=== PATIENT | female | born 1945 | race Caucasian/White ===

== ENCOUNTER → 2018-03-18 18:56 | Outpatient (REF) | payer MEDICARE, BC, SELFPAY ==
[2018-03-18 19:46] LABS: Bilirubin Negative (Negative); Blood Negative (Negative); Clarity Clear; Glucose Negative (Negative); Ketones Negative (Negative); Leukocyte Esterase Trace (Negative); Nitrite Negative (Negative); Specific Gravity <= 1.005 (1.005-1.025); Urobilinogen 0.2 EU/dL (Up TO 0.2)
[2018-03-18 20:00] LABS: Bacteria Few HPF (Negative); Casts Negative LPF (Negative); Crystals Negative HPF (Negative); Epithelial Cells Rare HPF (Negative); Mucus Negative (Negative); Other Cells Few Renal (Negative); RBC Negative (0-2)
[2018-03-18 20:01] LABS: C & S Indicated? Yes
== END ==
LOC: LBN 18:56
PROVIDERS: PCP Family Medicine; Visit Provider Family Medicine
DX: M54.9 Dorsalgia, unspecified (principal); R82.99 Other abnormal findings in urine
CPT/HCPCS: 81003; 81015; 87086

== ENCOUNTER 2018-09-05 01:51 | Outpatient (CLI) | payer MEDICARE, BC, SELFPAY ==
[2018-09-05 11:32] LABS: Absolute Basophil Count 0.01 k/cumm (0.0-0.2); Absolute Eosinophil Count 0.14 k/cumm (0.0-0.7); Absolute Lymphocyte Count 1.47 k/cumm (1.2-3.4); Absolute Neutrophil Count 2.69 k/cumm (1.2-6.7); Basophils % 0.2; Eosinophils % 2.9; HCT 41.6 % (36.0-46.0); HGB 13.4 g/dL (12.0-15.5); Lymphocytes % 30.6; Mean Corp. HGB Concentration 32.2 g/dL (32.0-36.0); Mean Corpuscular Hemoglobin 27.7 pg (27.0-33.0); Mean Corpuscular Volume 86.1 fL (80-95); Mean Platelet Volume 10.8 fL (8.0-11.0); Monocytes % 10.4; Neutrophils % 55.9; Platelet Count 197 x1000/uL (130-400); RBC 4.83 m/cumm (4.00-5.20); White Blood Cell Count 4.81 k/cumm (4.4-10.8)
[2018-09-05 12:09] LABS: ALT 20 U/L (12-78); AST 14 U/L (15-37); Albumin 3.7 g/dL (3.4-5.0); Alkaline Phosphatase 81 U/L (46-116); Anion Gap 6.9 mmol/L (3-11); BUN 17 mg/dL (7-18); Bilirubin, Total 0.3 mg/dL (0.2-1.0); CO2 32.1 mmol/L (21.0-32.0); CREATININE 0.75 mg/dL (0.55-1.02); Calcium 9.3 mg/dL (8.5-10.1); Chloride 104 mmol/L (98-107); Cholesterol 211 mg/dL (50-200); Glucose 89 mg/dL (70-100); HDL Cholesterol 78 mg/dL (40-60); LDL CHOLESTEROL 107 mg/dL (<100); Sodium 143 mmol/L (136-145); TSH 1.93 uIU/mL (0.358-3.74); Total Protein 7.1 g/dL (6.4-8.2); Triglyceride 85 mg/dL (30-150)
== END 2018-09-05 02:11 ==
PROVIDERS: PCP Family Medicine; Visit Provider Family Medicine
DX: E78.00 Pure hypercholesterolemia, unspecified (principal); R53.83 Other fatigue
CPT/HCPCS: 36415; 80053; 80061; 83721; 84443; 85025

== ENCOUNTER 2018-10-25 00:55 | Outpatient (CLI) | payer MEDICARE, BC, SELFPAY ==
--- NOTE | 2018-10-25 09:41 | DI.US_ITS ---
SYMPTOMS/DIAGNOSIS: PELVIC PAIN, R10.2 PELVIC ULTRASOUND: Transabdominal and transvaginal examination was performed. The uterus measures 5.6 cm long x 2.5 cm AP x 4.0 cm transverse. There does appear to be a 1.0 cm hypodense lesion in the anterior fundal region suggestive of a fibroid. The endometrial stripe measures .4 cm. There is a small amount of fluid seen within the endometrial canal. Both ovaries were visualized and are unremarkable. No evidence of hydronephrosis or free pelvic fluid is identified. IMPRESSION: 1 cm uterine fibroid.
== END 2018-10-25 01:15 ==
PROVIDERS: PCP Family Medicine; Visit Provider Family Medicine
DX: R10.2 Pelvic and perineal pain (principal); D25.9 Leiomyoma of uterus, unspecified
CPT/HCPCS: 76830; 76856

== ENCOUNTER 2019-05-29 15:00 | Outpatient (CLI) | payer MEDICARE, BC, SELFPAY ==
--- NOTE | 2019-05-29 14:56 | DI.RAD_ITS ---
EXAM: XR KNEE LT 3V AP,LAT,LOCO CLINICAL HISTORY: L knee pain TECHNIQUE: COMPARISON: Knee L from 10/29/2017 FINDINGS: Three views were obtained. There is a prominent enthesophyte of the superior pole of patella. No ot her bony or soft tissue abnormality seen. IMPRESSION:
== END 2019-05-29 15:20 ==
PROVIDERS: PCP Family Medicine; Referring Provider Family Medicine; Visit Provider Student in an Organized Health Care Education/Training Program
DX: M25.562 Pain in left knee (principal); M17.12 Unilateral primary osteoarthritis, left knee
CPT/HCPCS: 20610; 73562; 99213; J1040

== ENCOUNTER → 2019-10-06 14:04 | Outpatient (BNVA) | payer MEDICARE, BC, SELFPAY | PROVIDERS: PCP Family Medicine; Referring Provider Family Medicine; Visit Provider Student in an Organized Health Care Education/Training Program | DX: M17.12 Unilateral primary osteoarthritis, left knee (principal); M25.562 Pain in left knee | CPT/HCPCS: 20610; 99213; J1040 ==

== ENCOUNTER → 2020-02-02 14:47 | Outpatient (BNVA) | payer MEDICARE, BC, SELFPAY | PROVIDERS: PCP Family Medicine; Referring Provider Family Medicine; Visit Provider Student in an Organized Health Care Education/Training Program | DX: M17.12 Unilateral primary osteoarthritis, left knee (principal) | CPT/HCPCS: 99212; 99213 ==

== ENCOUNTER 2020-02-06 00:46 | Outpatient (CLI) | payer MEDICARE, BC, SELFPAY ==
--- NOTE | 2020-02-06 07:13 | DI.MRI_ITS ---
EXAM: MR LOWER JOINT LT WO CLINICAL HISTORY: persistent L knee pain. M23.92, INTERNAL DERANGEMENT. TECHNIQUE: Multiplanar multisequence MRI was performed. COMPARISON: CR XR KNEE LT 3V AP,LAT,LOCO from 05/29/2019 FINDINGS: BONES: Mild hyperintense signal is seen in the medial tibial plateau with thinning of the overlying a rticular cartilage which is likely degenerative. No findings to suggest an occult fracture. JOINTS: Thinning of the overlying cartilage of the medial tibial plateau. Moderate joint effusion. Moderate popliteal cyst. TENDONS: Extensor mechanism: Unremarkable. Medial retinaculum: Unremarkable. Lateral retinaculum: Unremarkable. Popliteus: Unremarkable. MUSCLES: Unremarkable. MENISCI: There is a complex tear involving the body and posterior horn of the medial meniscus. The l ateral meniscus is unremarkable. SOFT TISSUES: There is edema seen in the soft tissues around the knee. LIGAMENTS: Anterior Cruciate: Unremarkable. Posterior Cruciate: Unremarkable. Medial Collateral:There is fluid seen around an intact medial collateral ligament which may represent a sprain. Lateral Collateral: Unremarkable. OTHER: IMPRESSION: 1. Complex tear of the body and posterior horn of the medial meniscus. 2. Sprain of the medial collateral ligament. 3. Degenerative changes seen in the medial femoral tibial joint. 4. Moderate joint effusion and popliteal cyst. DATA REPOSITORY:
== END 2020-02-06 01:06 ==
PROVIDERS: PCP Family Medicine; Visit Provider Student in an Organized Health Care Education/Training Program
DX: M25.562 Pain in left knee (principal); M25.462 Effusion, left knee; S83.242A Other tear of medial meniscus, current injury, left knee, initial encounter; R60.0 Localized edema; S83.412A Sprain of medial collateral ligament of left knee, initial encounter; M17.12 Unilateral primary osteoarthritis, left knee
CPT/HCPCS: 73721

== ENCOUNTER 2020-02-19 10:00 | Outpatient (CLI) | payer MEDICARE, BC, SELFPAY | END 2020-02-19 10:20 | PROVIDERS: PCP Family Medicine; Visit Provider Physician Assistant | DX: M17.12 Unilateral primary osteoarthritis, left knee (principal) | CPT/HCPCS: 20610; 99213; J1040 ==

== ENCOUNTER → 2020-11-08 12:54 | Outpatient (BNVA) | payer MEDICARE, BC, SELFPAY | PROVIDERS: PCP Family Medicine; Referring Provider Family Medicine; Visit Provider Physician Assistant Surgical | DX: Z01.818 Encounter for other preprocedural examination (principal); S83.242D Other tear of medial meniscus, current injury, left knee, subsequent encounter; X58.XXXD Exposure to other specified factors, subsequent encounter ==

== ENCOUNTER 2020-11-15 03:16 | Outpatient (CLI) | payer MEDICARE, BC, SELFPAY ==
[2020-11-15 10:48] LABS: Source Nasal/Nares
[2020-11-15 16:19] LABS: COVID-19 PCR Negative (Negative)
== END 2020-11-15 03:17 | disposition home or self-care (01) ==
LOC: LBO 03:16
PROVIDERS: PCP Family Medicine; Visit Provider Student in an Organized Health Care Education/Training Program
DX: Z20.822 Contact with and (suspected) exposure to COVID-19 (principal); Z01.818 Encounter for other preprocedural examination
CPT/HCPCS: 87635

== ENCOUNTER 2020-11-16 08:45 | Day surgery (SDC) | payer MEDICARE, BC, SELFPAY ==
[2020-11-16] VITALS (8 sets, daily range): BP systolic 81–125; BP diastolic 30–64; PULSE 62–76; RESP 14–17; TEMP 36.1–36.6; O2SAT 97–100
--- NOTE | 2020-11-16 08:06 | W.PM.DSUDISC ---
Discharge Plan Disposition Patient Disposition: HOME Condition: Stable Discharge Details Reason For Visit: Left knee arthroscopy Attending Provider: William Choudhury Primary Care Provider: Kristen Christensen Home Meds and New Rx's Prescriptions: New hydrocodone-acetaminophen 5-325 mg tablet 1 tab PO Q6H PRNQty: 10 RF: 0 acetaminophen [Tylenol Extra Strength] 500 mg tablet 500 mg PO Q6H PRNQty: 90 RF: 0 ibuprofen 600 mg tablet 600 mg PO TID Qty: 90 RF: 0 Continued docusate sodium [Colace] 100 mg capsule 100 mg PO DAILY PRNRF: 0 psyllium husk [Fiber (psyllium husk)] 0.52 gram capsule 0.52 gm PO DAILY RF: 0 calcium citrate-vitamin D3 200 mg calcium -250 unit tablet 1 tab PO BID RF: 0 clobetasol-emollient 0.05 % cream 15 gm Topical 1 delfina to vulva PRN (Reason: Lichen sclerosus) Qty: 1 RF: 2 lovastatin 10 mg tablet 10 mg PO DAILY Qty: 90 RF: 4 diphenhydramine-acetaminophen [Acetaminophen PM] 25-500 mg Tablet 1 tab PO HS PRNRF: 0 Discharge Instructions Stand Alone Forms: Kei Knee Arthroscopy Referrals: William Choudhury MD [ [facility] STAFF PHYSICIAN] - Equipment/Supplies: Partial Weight Bearing Crutches Activity:: Activity as Tolerated Remove Dressings/Wound Care:: 72 hours Shower/Bathe:: 72 hours Diet:: As Tolerated Discharge Orders Discharge Orders: Discharge Order (Routine); Ordered 11/16/20 Ordered By: Kamla Sherman DS: Diagnosis Discharge Diagnosis (1) Tear of medial meniscus of left knee: Status: Acute
[2020-11-16] MEDS: Lactated Ringers 1,000 ML 80 ML IV (09:42)
[2020-11-16] MEDS: ceFAZolin 2 GM/50 ML BAG IVPB (10:28)
[2020-11-16] MEDS: Bupivacaine 0.5% Pres-Free 30 ML VIAL (10:58)
[2020-11-16] MEDS: HYDROcodone 5/Acetaminophen 325 TAB PO ×2 (12:33→13:18)
--- NOTE | 2020-11-16 18:09 | ROE_ITS ---
Date of service: 11/16/20 Time of Service: 11:10 Operative Note Operative Note DATE OF PROCEDURE: 11/16/20 PRE-OP DIAGNOSIS: Left Knee Medial Meniscus Tear POST-OP DIAGNOSIS: same PROCEDURE: Left Knee Arthroscopic Partial Medial Menisectomy SURGEON: William Choudhury ANESTHESIA TYPE: General LMA/ETT Refer to Anesthesia Record ESTIMATED BLOOD LOSS: 0 PATHOLOGY: none sent TOURNIQUET TIME: 0 COMPLICATIONS: None Patient was transported to: PACU Patient's condition: stable Indications: I have seen Edna in clinic for symptoms of a meniscus tear. This was confirmed based on MRI and exam findings. Nonoperative measures were exhausted but disability and pain persisted. I discussed knee arthroscopy with meniscal intervention with the patient. I reviewed the risks of the procedure to include, but not limited to, bleeding, infection, pain, stiffness, damage to nerves or vessels, recurrence, blood clot. Despite these risks, the patient elected to proceed. Findings: A diagnostic arthroscopy was performed with the following findings: Suprapatellar Pouch: Moderate inflammatory changes within the knee, No loose bodies Medial Compartment: Complex medial meniscal tear with a radial component at the level of the root with few peripheral fibers remaining, No focal chondromalacia but some global Grade II chondromalacia, No loose bodies Notch: ACL and PCL were intact Lateral Compartment: No meniscal tear, Intact meniscal root, Grade II chondromalacia over the femur, No loose bodies Patellofemoral Compartment: Grade II chondromalacia, No apparent patellar maltracking Procedure Description: Edna was greeted in the preoperative holding area where the correct side was identified and marked. The consent was reviewed with the patient and signed. The history and physical was updated. All questions were answered. Edna was taken back to the operating room. The patient was placed into the supine position on the operating room table. A nonsterile tourniquet was placed high onto the leg but not used. All bony prominences were well padded. Prophylactic antibiotics in the form of Cefazolin were administered. The left leg was then prepped with Chloraprep and draped in a standard fashion with stockinette and extremity drape. A timeout to confirm correct identity, side and site, procedure, allergies, anesthesia, and medical concerns was performed. The leg was placed into a pneumatic leg hernandez, SPIDER2. A standard lateral portal was made at the lateral border of the patella tendon in line with the inferior pole of the patella, soft spot. The skin and deep tissue was incised sharply and the blunt trochar was inserted atraumatically. A diagnostic arthroscopy was performed and the findings are listed above. The suprapatellar pouch had moderate inflammatory changes and synovitis. The patellofemoral articulation showed some Grade II chondromalacia of the patella apex as well as good tracking. The lateral gutter had no loose bodies and the medial gutter had no loose bodies. The knee was brought into some valgus stress in extension to open the medial compartment. A medial portal was made, localized by a spinal needle. The portal was created with an #11 blade through skin and capsule under direct visualization avoiding any meniscal injury. A probe was then inserted into the medial compartment. The medial compartment was fully inspected. The chondral surface of the tibia showed Grade II chondromalacia and the surface of the femur showed similar findings. The medial meniscus had a complex medial meniscus tear that a primary radial component just medial to the posterior root attachment. There was complex tearing into the body of the meniscus with fraying and horizontal tearing. After evaluation, the meniscus was debrided down to a stable base using a series of biters and arthroscopic tanya. It was probed afterwards to confirm that the tear had been removed and the meniscus was stable. The notch was then inspected which showed an intact ACL and an intact PCL. The leg was then brought into a figure of 4 position. The lateral compartment was fully inspected with the arthroscope and a probe. The chondral surface of the lateral femur showed no significant chondromalacia. The chondral surface of the lateral tibia showed Grade II chondromalacia. The lateral meniscus had no meniscal tear. The arthroscope was brought back into the suprapatellar pouch and the leg was in full extension. The knee was thoroughly irrigated with the arthroscopic fluid on high flow and pressure. Inflow was stopped and excess fluid was removed. The wounds were closed with 4-0 Nylon. They were dressed with Xeroform, 4x4 gauze, ABD pad, Kerlix and an FLOR wrap. A cryo-cuff was applied. The patient tolerated the procedure well and was returned to the [facility] in a stable condition suffering no known complication.
== END 2020-11-16 14:45 | disposition home or self-care (01) ==
LOC: SUR 08:46
PROVIDERS: PCP Family Medicine; Visit Provider Student in an Organized Health Care Education/Training Program
PROC: (CPT 29870; principal; 2020-11-16 10:30)
DX: S83.242A Other tear of medial meniscus, current injury, left knee, initial encounter (principal); E78.00 Pure hypercholesterolemia, unspecified
CPT/HCPCS: 29881; J0690; J1100; J1885; J2001; J2405

== ENCOUNTER → 2020-11-29 08:52 | Outpatient (BNVA) | payer MEDICARE, BC, SELFPAY | PROVIDERS: PCP Family Medicine; Referring Provider Family Medicine; Visit Provider Student in an Organized Health Care Education/Training Program | DX: Z47.89 Encounter for other orthopedic aftercare (principal); M25.562 Pain in left knee ==

== ENCOUNTER 2020-12-09 03:16 | Outpatient (CLI) | payer MEDICARE, BC, SELFPAY ==
[2020-12-09 09:16] LABS: ALT 22 U/L (14-59); AST 23 U/L (15-37); Albumin 3.9 g/dL (3.4-5.0); Alkaline Phosphatase 82 U/L (46-116); Anion Gap 5.3 mmol/L (3-11); BUN 19 mg/dL (7-18); Bilirubin, Total 0.4 mg/dL (0.2-1.0); CO2 32.7 mmol/L (21.0-32.0); CREATININE 0.9 mg/dL (0.55-1.02); Calcium 9.7 mg/dL (8.5-10.1); Chloride 104 mmol/L (98-107); Glucose 95 mg/dL (74-106); Potassium 4.1 mmol/L (3.5-5.1); Sodium 142 mmol/L (136-145); TSH 1.62 uIU/mL (0.36-3.74); Total Protein 7.1 g/dL (6.4-8.2)
[2020-12-09 09:36] LABS: Calculated LDL 168 mg/dL (<100); Cholesterol 262 mg/dL (<200); HDL Cholesterol 71 mg/dL (40-60); Triglyceride 115 mg/dL (<150)
== END 2020-12-09 03:17 | disposition home or self-care (01) ==
LOC: LBO 03:16
PROVIDERS: PCP Family Medicine; Visit Provider Family Medicine
DX: E78.00 Pure hypercholesterolemia, unspecified (principal); R23.2 Flushing
CPT/HCPCS: 36415; 80053; 80061; 84443

== ENCOUNTER → 2020-12-27 10:53 | Outpatient (BNVA) | payer MEDICARE, BC, SELFPAY | PROVIDERS: PCP Family Medicine; Referring Provider Family Medicine; Visit Provider Physician Assistant | DX: Z47.89 Encounter for other orthopedic aftercare (principal); M25.562 Pain in left knee ==

== ENCOUNTER 2021-03-04 03:01 | Outpatient (CLI) | payer MEDICARE, BC, SELFPAY ==
[2021-03-04 08:43] LABS: Calculated LDL 135 mg/dL (<100); Cholesterol 228 mg/dL (<200); HDL Cholesterol 73 mg/dL (40-60); Triglyceride 100 mg/dL (<150)
== END 2021-03-04 03:02 | disposition home or self-care (01) ==
LOC: LBO 03:02
PROVIDERS: PCP Family Medicine; Visit Provider Family Medicine
DX: E78.00 Pure hypercholesterolemia, unspecified (principal)
CPT/HCPCS: 36415; 80061

== ENCOUNTER 2021-03-07 16:09 | Outpatient (CLI) | payer MEDICARE, BC, SELFPAY ==
--- NOTE | 2021-03-07 13:30 | DI.RAD_ITS ---
Exam(s) XR CHEST 2V PA LATERAL EXAM: XR CHEST 2V PA LATERAL CLINICAL HISTORY: chronic cough/dc smoking 1993,R05. TECHNIQUE: 2D digital imaging was performed. COMPARISON: CR CHEST 2 VIEWS PA,LAT from 05/05/2012 FINDINGS: Heart size is normal. The mediastinum is not widened. Calcified granuloma in the right upper lobe sub apical region noted. No confluent infiltrates nor pl eural effusions. No pulmonary edema. No pneumothorax. IMPRESSION: No acute pulmonary findings. DATA REPOSITORY: RADIATION DOSE DELIVERED:
== END 2021-03-07 16:29 ==
PROVIDERS: PCP Family Medicine; Visit Provider Family Medicine
DX: R05 Cough (principal); F17.200 Nicotine dependence, unspecified, uncomplicated
CPT/HCPCS: 71046

== ENCOUNTER → 2021-12-29 02:10 | Outpatient (CLI) | payer MEDICARE, BC, SELFPAY ==
--- NOTE | 2021-12-29 07:00 | DI.RAD_ITS ---
Exam(s) XR CERVICAL SPINE COMP 4-5V EXAM: XR CERVICAL SPINE COMP 4-5V CLINICAL HISTORY: right neck pain, neck pain over 3 months duration, M54.2. TECHNIQUE: 2D digital imaging was performed. Six images were obtained. AP, odontoid, lateral and dario ateral oblique images were obtained. COMPARISON: No exams were available for comparison FINDINGS: The odontoid is intact. The lateral masses are well aligned. There is normal alignment of the cervi gonzalez spine. Small osteophytes are seen at C6-C7 and C7-T1. There is mild disc space narrowing at C6-C 7. Facet arthropathy is seen at multiple levels of the cervical spine. No acute fracture or subluxa tion is present. Mild neural foraminal narrowing is seen on the right at C2-C3 and C3-C4. Mild narro wing of the neural foramen is seen on the left at C4-5 and C5-C6. The cervical thoracic junction is w ell maintained. The prevertebral soft tissues are unremarkable. Lung apices are clear. IMPRESSION: Moderate degenerative changes of the cervical spine as described. DATA REPOSITORY: RADIATION DOSE DELIVERED:
== END ==
PROVIDERS: PCP Family Medicine; Visit Provider Family Medicine
DX: M50.323 Other cervical disc degeneration at C6-C7 level (principal); M47.812 Spondylosis without myelopathy or radiculopathy, cervical region; M25.78 Osteophyte, vertebrae
CPT/HCPCS: 72050

== ENCOUNTER 2021-12-30 10:59 | Outpatient (REF) | payer MEDICARE, BC, SELFPAY ==
--- NOTE | 2021-12-30 08:00 | PAPFT_PTH ---
PATIENT: Edna Obrien LOC: [facility] U#:[id number] AGE/SX: 76/F ROOM: RE12/30/[address]: EDUARDO Dominguez : 1945 BED: DIS: 12/30/2021 SPEC #: [id number] RECD: 12/30/21 12:22 STATUS: BELLO REQ #: [id number] RADHA: 12/30/21 08:[address]: Barbara Dickens DEPT: [facility] Cytology RECD BY: Kristi Rosado ENTERED: 12/30/21 12:23 SP TYPE: PAPFT OTHR DR: Krysta Morris Tissues: 1 - CX/ENDOCX FOR PAP SMEARS Procedures: PAP THIN PREP/UVM Screening HPV DNA PROBE Comments: [id number]
== END 2021-12-30 11:00 | disposition home or self-care (01) ==
LOC: LBN 10:59
PROVIDERS: PCP Family Medicine; Visit Provider Nurse Practitioner Family
DX: N95.0 Postmenopausal bleeding (principal); Z11.51 Encounter for screening for human papillomavirus (HPV); Z12.4 Encounter for screening for malignant neoplasm of cervix
CPT/HCPCS: 88142; 87624

== ENCOUNTER → 2022-01-13 00:47 | Outpatient (CLI) | payer MEDICARE, BC, SELFPAY ==
--- NOTE | 2022-01-13 07:30 | DI.US_ITS ---
Exam(s) US PELVIS TRANSVAGINAL EXAM: US PELVIS TRANSVAGINAL CLINICAL HISTORY: post menopausal bleeding,N95.0. TECHNIQUE: Transabdominal and transvaginal pelvic ultrasound was performed using standard protocol. COMPARISON: No exams were available for comparison FINDINGS: KIDNEYS: Kidneys are symmetric in size. No evidence of renal calculi. No evidence of hydronephrosis. No renal mass or cyst identified. UTERUS: Position: Retroverted. Size: 4.4 long by 2.4 AP by 3.3 transverse cm Endometrium: 0.4 cm. Normal for patient's menstrual status. There is a small amount of fluid seen wit hin the endometrial canal. Myometrium: Unremarkable. Cervix: Question of a cervical nabothian cyst. OVARIES: Right: 2.5 x 1.8 x 1.1 cm Cyst or mass: No suspicious cystic or solid masses. Left: 1.4 x 2.2 x 0.7 cm Cyst or mass: No suspicious cystic or solid masses. CUL-DE-SAC: Free fluid: None. Other: None. IMPRESSION: 1. Normal sonographic appearance of the kidneys. 2. Normal-appearing uterus with endometrial stripe within normal limits. 3. Small amount of fluid seen within the endometrial canal. 4. Unremarkable bilateral ovaries. DATA REPOSITORY:
== END ==
PROVIDERS: PCP Family Medicine; Visit Provider Nurse Practitioner Family
DX: N95.0 Postmenopausal bleeding (principal)
CPT/HCPCS: 76830; 76856

== ENCOUNTER 2022-01-26 10:12 | Outpatient (REF) | payer MEDICARE, BC, SELFPAY ==
--- NOTE | 2022-01-26 09:40 | ENDOMET_PTH ---
PATIENT: Edna Obrien LOC: [facility] U#:[id number] AGE/SX: 76/F ROOM: RE01/26/[address]: Veda Craig DO : 1945 BED: DIS: 01/26/2022 SPEC #: [id number] RECD: 01/26/22 12:36 STATUS: SOUT REQ #: [id number] RADHA: 01/26/22 09:[address]: Veda Craig DEPT: Surgical Specimen RECD BY: Kristi Rosado ENTERED: 01/26/22 12:37 SP TYPE: Endomet OTHR DR: Krysta Morris Tissues: 1 - ENDOMETRIUM BX/LUKEETTE Procedures: GROSS AND MICRO LEVEL 4 Comments: [id number]
== END 2022-01-26 10:13 | disposition home or self-care (01) ==
LOC: LBN 10:12
PROVIDERS: PCP Family Medicine; Visit Provider Obstetrics & Gynecology
DX: N85.8 Other specified noninflammatory disorders of uterus (principal); N95.0 Postmenopausal bleeding
CPT/HCPCS: 88305

== ENCOUNTER 2022-03-23 03:51 | Outpatient (CLI) | payer MEDICARE, BC, SELFPAY ==
[2022-03-23 12:54] LABS: Calculated LDL 92 mg/dL (<100); Cholesterol 182 mg/dL (<200); HDL Cholesterol 70 mg/dL (40-60); Triglyceride 103 mg/dL (<150)
== END 2022-03-23 03:52 | disposition home or self-care (01) ==
LOC: LOS 03:51
PROVIDERS: PCP Family Medicine; Visit Provider Family Medicine
DX: E78.00 Pure hypercholesterolemia, unspecified (principal)
CPT/HCPCS: 36415; 80061

== ENCOUNTER → 2022-04-06 02:56 | Outpatient (CLI) | payer MEDICARE, BC, SELFPAY ==
--- NOTE | 2022-04-06 07:07 | DI.CT_ITS ---
Exam(s) CT CERVICAL SPINE WO EXAM: CT CERVICAL SPINE WO CLINICAL HISTORY: abnormal MRI, cervical radiculopathy, M47.22, DJD spine. TECHNIQUE: Imaging Protocol: Axial computed tomography images with coronal and sagittal reformatted images were created and reviewed COMPARISON: CR XR SHOULDER LT COMPLETE 2+V from 04/06/2022 FINDINGS: CERVICAL SPINE: There is no evidence of fracture nor listhesis. No significant prevertebral soft tissue swelling. Mild multilevel disc space narrowing. There is moderate disc space narrowing at C2-3 level. Milder disc space narrowing at the other levels. Mild degenerative anterolisthesis of C 4 upon C5 due to fa cet arthropathy. There are advanced multilevel degenerative changes noted in the right facet to mint ; less so in the left facet joints. There is no facet malalignment. No prominent central spinal canal stenosis. IMPRESSION: Multilevel right-sided facet arthropathy and multilevel degenerative disc disease. No evidence of ac ann fracture, significant listhesis, nor acute compromise of the cervical spinal canal. If clinicall y indicated further imaging with MRI can be performed for added sensitivity and specificity. RADIATION DOSE DELIVERED: 399mGy.cm Total DLP DATA REPOSITORY: All CT scans at this facility are submitted to the National Radiology Data Registry (NRDR) Dose Index Registry (DIR) with the [employer] ([employer]). RADIATION OPTIMIZATION: All CT scans at this facility use at least one of these dose optimization te chniques: automated exposure control; mA and/or kV adjustment per patient size (includes targeted exa ms where dose is matched to clinical indication); or iterative reconstruction.
--- NOTE | 2022-04-06 08:26 | DI.RAD_ITS ---
Exam(s) XR SHOULDER LT COMPLETE 2+V EXAM: XR SHOULDER LT COMPLETE 2+V CLINICAL HISTORY: left arm pain,? AC arthritis,cervical radiculopathy,pain upper ext, M47.22. TECHNIQUE: 2D digital imaging was performed. COMPARISON: No exams were available for comparison FINDINGS: Five views: No evidence of fracture or dislocation. Mild-moderate degenerative changes are noted in the glenohum eral joint. There is slight widening of the AC joint noted. There is a prominent chunk of calcium in the soft tissues anterior to the humeral head seen on the ax ial image just anterior to the lesser tuberosity. This calcific density measures 1.8 x 0.7 cm. Ther e is a possibly that this may be comprised of 2 similar appearing adjacent calcifications. It is in the region of the anterior rotator cuff-subscapularis. Either represents calcific anterior subscapul todd rotator cuff tendinitis or may represents free calcified body within the glenohumeral joint spac e. IMPRESSION: Significant anterior calcification as described above. Recommend follow-up MRI. DATA REPOSITORY: RADIATION DOSE DELIVERED:
== END ==
PROVIDERS: PCP Family Medicine; Visit Provider Family Medicine
DX: M47.22 Other spondylosis with radiculopathy, cervical region (principal); M75.82 Other shoulder lesions, left shoulder
CPT/HCPCS: 72125; 73030

== ENCOUNTER 2022-07-19 15:23 | Outpatient (REF) | payer MEDICARE, BC, SELFPAY ==
[2022-07-19 16:36] LABS: C Diff PCR Negative (Negative)
== END 2022-07-19 15:24 | disposition home or self-care (01) ==
LOC: LBN 15:23
PROVIDERS: PCP Family Medicine; Visit Provider Family Medicine
DX: K52.1 Toxic gastroenteritis and colitis (principal); T36.95XA Adverse effect of unspecified systemic antibiotic, initial encounter
CPT/HCPCS: 87493

== ENCOUNTER 2022-09-22 00:55 | Outpatient (CLI) | payer MEDICARE, BC, SELFPAY ==
[2022-09-22 12:13] LABS: Abs Immature Grans 0.01 10^3/uL (0.0-0.06); Absolute Basophil Count 0.03 10^3/uL (0.0-0.2); Absolute Eosinophil Count 0.15 10^3/uL (0.0-0.7); Absolute Monocyte Count 0.55 10^3/uL (0.1-0.8); Absolute Neutrophil Count 3.45 10^3/uL (1.2-6.7); Basophils % 0.5; Eosinophils % 2.7; HGB 14.1 g/dL (11.2-15.7); Immature Grans % 0.2; MCH 27.2 pg (27.0-33.0); MCHC 31.3 % (32.0-36.0); MCV 87 fL (80-95); MPV 10.6 fL (8.0-11.0); Monocytes % 9.8; Neutrophils % 61.8; Platelet Count 211 10^3/uL (130-400); RBC 5.19 10^6/uL (3.93-5.22); RDW 12.4 % (11.7-14.6); RDW-SD 39.6 fL; WBC 5.59 10^3/uL (4.4-10.8)
[2022-09-22 12:49] LABS: ALT 17 U/L (14-59); AST 25 U/L (15-37); Albumin 3.6 g/dL (3.4-5.0); Alkaline Phosphatase 89 U/L (46-116); BUN 17 mg/dL (7-18); Bilirubin, Total 0.3 mg/dL (0.2-1.0); CREATININE 0.9 mg/dL (0.55-1.02); Calcium 9.5 mg/dL (8.5-10.1); Chloride 102 mmol/L (98-107); Estimated GFR 66.26 (mL/min/1.73m2); Glucose 94 mg/dL (74-106); Potassium 3.7 mmol/L (3.5-5.1); Sodium 139 mmol/L (136-145); Total Protein 7.2 g/dL (6.4-8.2)
== END 2022-09-22 00:56 | disposition home or self-care (01) ==
LOC: LOS 00:55
PROVIDERS: PCP Family Medicine; Visit Provider Family Medicine
DX: R19.4 Change in bowel habit (principal)
CPT/HCPCS: 36415; 80053; 85025

== ENCOUNTER 2022-12-06 23:18 | Outpatient (REF) | payer MEDICARE, BC, SELFPAY | END 2022-12-06 23:19 | disposition home or self-care (01) | LOC: LBN 23:18 | PROVIDERS: PCP Family Medicine; Visit Provider Nurse Practitioner Family | DX: R10.9 Unspecified abdominal pain (principal); R82.998 Other abnormal findings in urine; R11.2 Nausea with vomiting, unspecified | CPT/HCPCS: 87086 ==

== ENCOUNTER 2023-07-29 09:49 | Emergency (ER) | payer MEDICARE, BC, SELFPAY ==
[2023-07-29] VITALS (37 sets, daily range): BP systolic 127–144; BP diastolic 45–82; PULSE 52–92; RESP 9–36; O2SAT 96–100
--- NOTE | 2023-07-29 09:45 | RT.EKG_ITS ---
APPROVED REPORT Exam: Resting ECG Reason for Exam: DIZZINESS, NAUSEA Patient Location: E HR:76 bpm ECG Measurements Heart Rate 76 AXIS AL 174 P 64 QRSd 90 QRS 46 QT 388 T 28 QTc 436 Conclusion Sinus rhythm...normal P axis, V-rate 60- 99 NSR, isolated t wave inversion in III, no STEMI, normal axis, normal intervals, no previous avail
--- NOTE | 2023-07-29 09:59 | ED.GENADUL_ITS ---
Discharge Plan Disposition Patient Disposition: Home Condition: Improving Discharge Details Clinical Impression: Benign paroxysmal positional vertigo Primary Care Provider: Krysta Morris ED Provider: Sue Hernandez Home Meds and New Rx's Prescriptions: New meclizine 12.5 mg tablet 12.5 mg PO Q6H PRN PRNQty: 1 0RF Rx Instructions: Take 1 to 2 tablets every 6 hours as needed for dizziness. Do not take Tylenol PM while taking this medication. It can cause drowsiness. ondansetron 4 mg tablet,disintegrating 4 mg PO Q4H PRN (Reason: nausea and vomiting) Qty: 12 0RF Rx Instructions: Take 1 tablet every 3-4 hours as needed for nausea. No Action lovastatin 20 mg tablet 20 mg PO DAILY Qty: 90 4RF Hold Instructions: Home Medication placed on hold at Doctor's office ondansetron HCl 4 mg tablet 4 mg PO Q8H PRN (Reason: nausea and vomiting) Qty: 10 0RF Hold Instructions: Pt Stopped/Never Started calcium citrate-vitamin D3 200 mg calcium -250 unit tablet 1 tab PO BID clobetasol 0.05 % ointment 1 applic topical DAILY PRN (Reason: apply to vulva as needed) Qty: 15 4RF gabapentin 100 mg capsule See Rx Instructions PO BID Qty: 270 3RF Rx Instructions: 100mg in morning and 200mg at bedtime orally twice a day; diphenhydramine-acetaminophen [Acetaminophen PM] 25-500 mg Tablet 1 tab PO HS PRN acetaminophen [Tylenol Extra Strength] 500 mg tablet 500 mg PO Q6H PRNQty: 90 0RF Discharge Instructions Instructions: Benign Paroxysmal Positional Vertigo (ED) Additional Instructions: 1. Take meclizine 12.5 mg 1 to 2 tablets every 6 hours as needed for dizziness. Do not take Tylenol PM or any other antihistamines while on meclizine. This can cause drowsiness. You should not drink alcohol drive or operate heavy m ach[place] while taking this medication. 2. Take 4 mg of ondansetron every 3 hours as needed for nausea and vomiting. 3. You should contact your primary care provider on July 31 to arrange for follow-up appointment. You will be contacted by Dr. Mendoza's office. She is a neurologist for the vertigo. 4. Return to the emergency department for any new or worsening symptoms such as unilateral muscle weakness inability to ambulate or keep down pills or oral fluids, or for any new or worrisome symptoms. Discharge Data Discharge Date/Time-TO BE ENTERED AT DEPARTURE: 07/29/23 14:53 Discharge Physician: Sue Hernandez Medical Decision Making This is a 78 yo female who presents with the acute onset of dizziness after dusting her home. Although she is having difficulty distinguishing between presyncopal and vertiginous dizziness, her exam in constistent with either peripheral or central vertigo, given her nystagmus, nausea and vomiting. She does not have any other neurologic focal abnormalities, or headache. She denies any tinnitus or change in hearing and I doubt this is the initial presentation of Menieire's disease. I am not sure why she is having diarrhea, and it is possible, although unlikely she has an abominal process such as a gastroenteritis, causing dehydration and presyncopal dizziness. My main concern, given her age in a cerebellar hemorrhagic or non-hemorrhagic CVA, which may only have vertiginous symptoms on presentation. My plan is to order a noncontrast CT of her brain, to obtain IV access, and order blood work including a cbc to check for anemia, leukocytosis, and a CMP, to check for electolyte abnormalities, elevated anion gap, renal function, liver function tests. I will order zofran for her nausea. When her nausea has been addressed, I will give her po meclizine if her head CT is normal. Her abdominal exam is benign and I do not think she has a GI bleed and I do not believe there is an indication for CT scanning of the abdomen. Differential Diagnosis Differential Diagnosis: Vertigo vs. presyncope, cerebellar cva, gastroenteritis. Medical Records Medical records reviewed: Yes I reviewed the patient's medical records. Imaging Data Radiologic Study: Imaging: CT Scan (CTA Brain and Neck) Radiologist's impression: vRad impression no evidence of acute intracranial abnormality. No acute hemorrhage. No evidence of acute infarct or mass. Radiologic Study #2: Imaging: CT Scan (CTA Neck) Radiologist's impression: IMPRESSION: No cervical vascular stenosis, occlusion, or evidence of dissection. Lab Data Lab results reviewed: Yes I reviewed the patient's lab results. Lab results narrative: normal WBC, mild anemia, normal plt count, normal diff, normal coags, hypokalemia, no elevation of anion gap, normal renal function, mild hyperglycemia, normal UA, ECG Data Attestation: I personally reviewed and interpreted this ECG (s) as follows: Prior ECG tracings: available for review HPI General Date/Time Provider Initiated Documentation: 07/29/23 09:59 . Limitations to Documentation: no limitations . Information obtained by: patient and family () . HPI Narrative: Time seen was 10:15 am in bed 6. The patient is a 78 yo F who presents with the acute onset of dizziness which began abuptly this morning at about 8 am. The patient describes dizziness which she preceives as both the sensation of move ment as well as the feeling she is going to pass out. She denies chest pain, change in hearing, headache, or recent URI. She denies any previous similar symptoms. The symptoms began after she was dusting her house. She states that she felt fine when she woke up. She denies any blurry vision, numbness, tingling, unilateral arm or leg weakness, confusion or recent head trauma, no fever, no abdominal pain, no previous similar episodes. She has had 5 episodes of non-bloody diarrhea. She has had nausea and has vomited twice. No blood or coffee grounds noted in vomitus. No abdominal pain, dysuria, back pain. No sick contacts with similar symptoms. No recent foreign travel, no unusual foods, no recent antibiotics. Related Data Home Medications Medication Instructions Recorded Confirmed calcium citrate 200 mg 1 tab PO BID 07/22/18 07/29/23 calcium-vitamin D3 6.25 mcg (250 unit) tablet diphenhydramine 25 1 tab PO HS PRN 11/15/20 07/29/23 mg-acetaminophen 500 mg tablet (Acetaminophen PM) acetaminophen 500 mg tablet 500 mg PO Q6H PRN #90 tabs 11/16/20 07/29/23 (Tylenol Extra Strength) clobetasol 0.05 % topical ointment 1 applic topical DAILY PRN apply 03/10/21 07/29/23 to vulva as needed #15 grams lovastatin 20 mg tablet 20 mg PO DAILY #90 tab-caps 12/29/22 07/29/23 gabapentin 100 mg capsule See Rx Instructions PO BID #270 08/02/23 12/24/23 caps ondansetron HCl 4 mg tablet 4 mg PO Q8H PRN nausea and 05/16/23 07/29/23 vomiting #10 tabs meclizine 12.5 mg tablet 12.5 mg PO Q6H PRN PRN #1 tab 07/29/23 ondansetron 4 mg disintegrating 4 mg PO Q4H PRN nausea and 07/29/23 tablet vomiting 12 doses #12 tabs Previous Rx's Medication Instructions Recorded acetaminophen 500 mg tablet 500 mg PO Q6H PRN #90 tabs 11/16/20 (Tylenol Extra Strength) clobetasol 0.05 % topical ointment 1 applic topical DAILY PRN apply 03/10/21 to vulva as needed #15 grams lovastatin 20 mg tablet 20 mg PO DAILY #90 tab-caps 12/29/22 gabapentin 100 mg capsule See Rx Instructions PO BID #270 03/07/23 caps ondansetron HCl 4 mg tablet 4 mg PO Q8H PRN nausea and 05/16/23 vomiting #10 tabs meclizine 12.5 mg tablet 12.5 mg PO Q6H PRN PRN #1 tab 07/29/23 ondansetron 4 mg disintegrating 4 mg PO Q4H PRN nausea and 07/29/23 tablet vomiting 12 doses #12 tabs Allergies Allergy/AdvReac Type Severity Reaction Status Date / Time BLACK FLIES Allergy Severe THROAT Uncoded 07/29/23 12:21 CLOSES UP General Stated Complaint: Dizzy/Sync Review of Systems Narrative: see hpi PFSH All Active Problems Benign paroxysmal positional vertigo (Acute) Cervical radiculopathy due to degenerative joint disease of spine (Chronic) s/p trigger point injections with bupivicaine at [facility] 06/2022 POLST (Physician Orders for Life-Sustaining Treatment) (Acute) Pure hypercholesterolemia (Acute) excellent response to low Statin Primary osteoarthritis of left knee (Acute 10/29/17) Injected: 10/06/2019; 05/29/2019; 10/29/2017 Hemorrhoids (Acute) Lichen sclerosus et atrophicus (Chronic) improves with clobetasol ointment; uses twice weekly. Medical History Postmenopausal Bleeding Ultrasound performed with 4 mm endometrial stripe. Endometrial sampling performed 01/26/2022 for scant tissue. Dupuytren contracture asymptomatic Hiatal hernia Family history of breast cancer (06/25/13) mom post menopausal; sister post menopausal Uterine leiomyoma small fundal fibroid by U/S History of tobacco use (06/25/13) QUIT IN 1992 Diverticulosis of colon without diverticulitis Surgical History History of bilateral ligation of fallopian tubes Status post rotator cuff repair Tear of medial meniscus of left knee S/P L knee arthroscopy: 11/16/2020 Family History Mother , AGE 79 Essential hypertension Hyperlipidemia Breast cancer RETURNED AFTER 4.5 YRS Father , AGE 91 Diabetes Essential hypertension Heart disease CABG Hyperlipidemia Stroke Sister Heart disease Breast cancer managed with surgery Sister Diabetes Essential hypertension Paternal Grandfather , ACCIDENTAL No problems noted. Maternal Grandmother , SHOT at age 38. No problems noted. Paternal Grandmother , age 93 No problems noted. Son Essential hypertension Maternal Grandfather No problems noted. 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 What is your relationship status?: How often do you talk on the phone with friends or family?: three or more times per week How often do you get together with friends or relatives?: once per week How often do you attend yarsani or adventist services?: decline to answer Do you belong to any clubs or organized social groups?: yes Panel score (0-1 are the most socially isolated patients): 3 What type of physical activity do you participate in: walking Duration: < 15 minutes/day Frequency: decline to answer Brie/Yarsani: Mandaeism Special brie needs: No Seatbelt use: always Drive intox or ride w/intox passenger coach driver: No Do you feel safe at home: Yes Do you feel safe in your relationship?: Yes Exam Narrative Exam Narrative: The patient is a well developed, well nourished female, sitting up on the stretcher holding an emesis bag. She is mildly hypertensive, she is not tachycardic, tachypneic, and her temperature is not recorded, but her skin feels normothermic. Her room air sat is normal at 96-98 %.She does not appear to be in acute pain, but is holding her head still or with her eyes closed. Const General: cooperative, healthy appearing, well developed and well groomed Nutritional Appearance: average body habitus and well nourished Orientation: alert, awake and oriented x3 Limitations: mental status not altered [facility] Head: normal to inspection, normocephalic, atraumatic and no acral cyanosis Ears: hearing grossly normal bilaterally, external ears normal, TM's normal bilaterally, mastoids normal and no periauricular adenopathy General nose exam: external nose normal, nares normal and no nasal discharge Face and sinus: normal facial exam, sinuses nontender, face symmetric and other (no facial droop, no dysarthria, no expressive aphasia.) Mouth: oral mucosae normal, lip normal, tongue normal, oropharynx normal, moist mucous membranes, normal tongue and other (Normal phonation. The patient is handling secretions.) Throat: posterior oropharynx normal, uvula midline and other Other: Patient has normal phonation, handling secretions. Eyes Periorbital: periorbital findings normal Eyelids: eyelids normal Conjunctivae: conjunctivae normal Sclera: sclerae normal Cornea: corneas normal Pupils: PERRL and pupils equal EOM: EOM intact bilaterally and nystagmus (horizontal with fast component to the left) Other: Her puplis are equally round and reactive to light. She has constant horizontal nystagmus with the fast component to the left. (shown to patient's ). Pt appears to have bilateral lens implants. Neck Neck: normal visual inspection, full ROM, no lymphadenopathy, no meningeal signs, trachea midline, supple, no anterior neck swelling, no lymphadenopathy noted, no tracheal deviation, no JVD and No submandibular swelling Thyroid: thyroid normal Carotids: no bruits Lymphatic: no lymphadenopathy noted Other: FROM of cervical spine. Chest Chest: normal inspection of the chest Resp Effort & Inspection: normal respiratory effort, able to speak in complete sentences, no audible wheezes, no nasal flaring, no respiratory distress, no retractions, no stridor, not tachypneic, no tracheal deviation, no use of accessory muscles, No prolonged expiratory phase and other (Normal inspiratory to expiratory ratio.) Auscultation: clear to auscultation bilaterally, no rales, no rhonchi, no wheezes and no rubs Tactile Fremitus: tactile fremitus absent Cardio Jugular venous pressure: no JVD Palpation: normal PMI Rate: regular rate Rhythm: regular rhythm Heart Sounds: S1 normal, S2 normal, no gallops, no murmurs and no rubs Pulses: radial pulses present GI Inspection: normal to inspection, non-distended and no scars Palpation: soft, no hepatosplenomegaly, no guarding and nontender Percussion: normal to percussion Auscultation: normal bowel sounds General: No CVA tenderness Back/Spine/Pelvis Back: no CVA tenderness and No back tenderness Cervical Spine: normal cervical lordosis, cervical ROM normal, No cervical muscular tenderness, No pain with cervical ROM, No cervical spinal tenderness and No step off deformity Thoracic/Lumbar Spine: thoracic and lumbar spine normal to inspection, No thoracic spinal tenderness and No lumbar spinal tenderness Skin General skin exam: no rashes or lesions noted, turgor normal, no petechiae, no purpura and other (Skin is normal for ethnicity.) Lesions: no lesions Rashes: no rashes Trauma: no lacerations or abrasions Neuro General: patient alert, patient awake, patient oriented x3, moves all extremities, no meningeal signs, no focal motor deficits, CN's II-XI intact bilaterally, deep tendon reflexes 2+ bilaterally, not confused and not obtunded Cranial Nerves: CN's II-XI intact bilaterally, PERRL, accommodation normal, EOM intact bilaterally, facial strength normal, tongue midline, hearing normal and nystagmus (horizontal with fast component to the left) horizontal and within normal field of vision; not vertical and not rotary Cognition: normal cognition Speech: speech normal Gait: normal gait Motor: muscle tone normal throughout and strength 5/5 throughout Sensory Exam: no sensory deficits noted DTR's: Rt Biceps: 2+, Lt Biceps: 2+, Rt Brachioradialis: 1+, Lt Brachioradialis: 1+, Rt Patellar: 2+, Lt Patellar: 2+, Rt Ankle: 2+ and Lt Ankle: 2+ Plantar Reflexes: Downgoing: bilateral Coordination: [id number] test normal Pupils: Normal pupillary reactivity/response: bilateral Extrem General: normal to inspection, full ROM, capillary refill normal, no clubbing, cyanosis or edema and no calf tenderness Psych Appearance: grossly normal Affect: normal affect Attitude: cooperative Thought Process: normal Thought Content: normal Insight: insight good Judgment: judgment good Other: The patient appears to have capacity make medical decisions. Course 1320 p.m. I have updated the patient on the CT scans and lab work. I have written for p.o. potassium and meclizine. She does feel improved and is not having more vomiting if she is able to keep down p.o. we will discharge her with outpatient follow-up with neurology and a prescription for meclizine. 1357 PM: The patient has been able to keep down p.o. potassium and meclizine. I have discussed that she will need to follow-up with Dr. Lynn. I have advised her to follow-up with her primary care provider. I have advised her to take Zo alex ODT as needed for nausea and vomiting and meclizine 12.5 mg 1-2 p.o. every 6 hours as needed nausea and dizziness. The patient voiced understanding agree with the discharge plan. All her questions and concerns were addressed prior to discharge. We are just awaiting her ambulation trial Critical Care Time Critical Care Time Critical Care Time: Yes Total Critical Care Time: 48 Attestation: This includes time at the bedside for initial evaluation, frequent re- evaluation, review of labs, radiographs and ECG, discussion of the ancillary reports with the patient and her significant other. discharge instructions and follow up instructions, including avoidance of combining antihistamines.
--- NOTE | 2023-07-29 10:16 | NUR.NOTE ---
Nursing Note: Pt walked in halls per physician request with continuous oxygen monitoring. Pt reports no SOB and SpO2 94-95% for duration. Results delivered to .
--- NOTE | 2023-07-29 10:30 | DI.CT_ITS ---
Exam(s) CT BRAIN NECK CTA EXAM: CT BRAIN NECK CTA CLINICAL HISTORY: rule out. TECHNIQUE: Imaging Protocol: Axial CT angiography was performed with multi-slice acquisition and mu lti-planar and/or 3D reconstructions. CONTRAST MATERIAL: Intravenous: Omnipaque 350 Contrast volume:structured data in ml COMPARISON: No exams were available for comparison FINDINGS: CTA Neck W: Aortic arch anatomy: The aortic arch anatomy is conventional and there is no significant stenosis at the origin of the great vessels off of the aortic arch. No intimal flap evident. Anterior circulation: Both common carotid arteries ascend with normal luminal diameters. At the level the carotid bulbs and proximal internal carotid arteries there is minimal plaque without hemodynamically significant stenosis evident. Posterior circulation: Both vertebral arteries originate in conventional fashion off of the subclavian arteries and there is no obvious stenosis at the origin of the vertebral arteries. Both vertebral arteries exhibit normal luminal diameters within the foramen transversarium. Both vertebral arteries contribute to the formation of the basilar artery at the skull base. CTA Brain W: Anterior circulation: Both internal carotid arteries are patent in the skull base-carotid canals as well as within the cave rnous sinuses. The supraclinoid aspects of the ICAs are patent. Both A1 segments are patent as are the anterior cer ebral arteries and there is no evidence of aneurysm at the level of the anterior communicating artery . Both middle cerebral arteries are patent with no evidence of significant stenosis nor intraluminal th rombus. There also no aneurysms of these vessels. Posterior circulation: The basilar artery ascends in the midline. Distally it gives off patent bilateral superior cerebella r arteries. Above this level the basilar artery terminates as patent bilateral posterior cerebral arteries. There is no evidence of aneurysm at the tip of the basilar artery nor elsewhere in the [id number] is. CT BRAIN: There is no evidence of intracranial hemorrhage, mass effect, or shift of midline structures. There are no extra-axial fluid collections. Ventricles are not enlarged or shifted. There are no ring enh ancing lesions in the brain and no abnormal meningeal enhancement. IMPRESSION: 1. Patent carotid arteries in the neck. No hemodynamically significant stenosis. 2. Patent vertebral arteries. 3. Patent intracranial arteries. 4. No acute intracranial findings. No ring enhancing lesions in the brain and no abnormal meningeal enhancement RADIATION DOSE DELIVERED: Total DLP DATA REPOSITORY: All CT scans at this facility are submitted to the National Radiology Data Registry (NRDR) Dose Index Registry (DIR) with the [employer] (ACR). RADIATION OPTIMIZATION: All CT scans at this facility use at least one of these dose optimization te chniques: automated exposure control; mA and/or kV adjustment per patient size (includes targeted exa ms where dose is matched to clinical indication); or iterative reconstruction.
[2023-07-29 10:45] LABS: Abs Immature Grans 0.03 10^3/uL (0.0-0.06); Absolute Basophil Count 0.02 10^3/uL (0.0-0.2); Absolute Eosinophil Count 0.09 10^3/uL (0.0-0.7); Absolute Lymphocyte Count 2.25 10^3/uL (1.2-3.4); Absolute Neutrophil Count 3.17 10^3/uL (1.2-6.7); Basophils % 0.3; Eosinophils % 1.5; HCT 42.7 % (36.0-46.0); HGB 13.6 g/dL (11.2-15.7); Immature Grans % 0.5; Lymphocytes % 36.5; MCH 26.8 pg (27.0-33.0); MCHC 31.9 % (32.0-36.0); MCV 84 fL (80-95); MPV 10.1 fL (8.0-11.0); Monocytes % 9.7; Neutrophils % 51.5; Platelet Count 195 10^3/uL (130-400); RBC 5.07 10^6/uL (3.93-5.22); RDW 12.8 % (11.7-14.6); RDW-SD 39.4 fL; WBC 6.16 10^3/uL (4.4-10.8)
[2023-07-29 10:58] LABS: PTT Activated 25.4 sec (23.6-32.8); Prothrombin Time 10.4 sec (9.1-11.1)
[2023-07-29 11:09] LABS: ALT 20 U/L (14-59); AST 23 U/L (15-37); Albumin 3.7 g/dL (3.4-5.0); Alkaline Phosphatase 78 U/L (46-116); Anion Gap 6.4 mmol/L (3-11); BUN 18 mg/dL (7-18); Bilirubin, Total 0.4 mg/dL (0.2-1.0); CO2 29.6 mmol/L (21.0-32.0); CREATININE 0.9 mg/dL (0.55-1.02); Chloride 100 mmol/L (98-107); Estimated GFR 65.84 (mL/min/1.73m2); Glucose 128 mg/dL (74-106); Potassium 3.2 mmol/L (3.5-5.1); Sodium 136 mmol/L (136-145); Total Protein 7.5 g/dL (6.4-8.2); Troponin I < 50 ng/L (<or=60)
[2023-07-29 11:13] LABS: Calcium 9.8 mg/dL (8.5-10.1)
[2023-07-29] MEDS: Ondansetron 4 MG/2 ML VIAL IVP (11:34)
[2023-07-29] MEDS: Normal Saline - Diluent 50 ML VIAL IJ (12:10)
[2023-07-29] MEDS: Omnipaque 350 MG/ML 100 ML BTL 85 ML IJ (12:11)
[2023-07-29] MEDS: Normal Saline Flush 10 ML SYR IVP (12:12)
--- NOTE | 2023-07-29 12:34 | DI.VRAD_ITS ---
PROCEDURE INFORMATION: Exam: CT Head Without And With Contrast Exam date and time: 07/29/2023 11:45 AM Age: 78 years old Clinical indication: Other: Rule out cerebellar infarct TECHNIQUE: Imaging protocol: Computed tomography of the head without and with contrast. COMPARISON: CT CERVICAL SPINE WO 04/06/2022 8:21 AM FINDINGS: Brain: There is no acute intracranial hemorrhage. No extra-axial fluid collection. No evidence of acute infarct. Lord white differentiation is intact. No evidence of acute infarct and specifically no evidence of cerebellar infarct. There is no evidence of mass. No evidence of abnormal enhancement. There is no mass effect or midline shift. Cerebral ventricles: No ventriculomegaly. Paranasal sinuses: There is mucosal thickening and retention cyst or polyp in inferior right maxillary sinus. Mastoid air cells: Visualized mastoid air cells are well aerated. Bones/joints: Unremarkable. No acute fracture. Soft tissues: Unremarkable. IMPRESSION: No evidence of acute intracranial abnormality. No acute hemorrhage. No evidence of acute infarct or mass. ASSESSMENT: ASPECTS (Geraldine Stroke Program Early CT Score) is 10. PROCEDURE INFORMATION: Exam: CTA Head With Contrast, Arteriography Exam date and time: 07/29/2023 11:45 AM Age: 78 years old Clinical indication: Other: Rule out cerebellar infarct TECHNIQUE: Imaging protocol: Computed tomographic angiography of the head with contrast. Exam focused on the arteries. 3D rendering (Not supervised by radiologist): MIP and/or 3D reconstructed images were created by the technologist. Contrast material: OMNIPAQUE 350; Contrast volume: 85 ml; Contrast route: INTRAVENOUS (IV); COMPARISON: CT CERVICAL SPINE WO 04/06/2022 8:21 AM FINDINGS: ANTERIOR CIRCULATION: Right internal carotid artery: Intracranial segment is patent with no significant stenosis. No aneurysm. Right middle cerebral artery: No occlusion or significant stenosis. No aneurysm. Right anterior cerebral artery: No occlusion or significant stenosis. No aneurysm. Left internal carotid artery: Intracranial segment is patent with no significant stenosis. No aneurysm. Left middle cerebral artery: No occlusion or significant stenosis. No aneurysm. Left anterior cerebral artery: No occlusion or significant stenosis. No aneurysm. POSTERIOR CIRCULATION: Right vertebral artery: No occlusion or significant stenosis. No aneurysm. Posterior inferior cerebellar artery is patent. Left vertebral artery: No occlusion or significant stenosis. No aneurysm. Posterior inferior cerebellar artery is patent. Basilar artery: No occlusion or significant stenosis. No aneurysm. Patent bilateral superior cerebellar arteries. Right posterior cerebral artery: No occlusion or significant stenosis. No aneurysm. Left posterior cerebral artery: No occlusion or significant stenosis. No aneurysm. Brain: No definite mass, mass effect, or midline shift. Cerebral ventricles: No ventriculomegaly. Bones/joints: Unremarkable. No acute fracture. Soft tissues: Unremarkable. IMPRESSION: No intracranial vascular stenosis or occlusion. PROCEDURE INFORMATION: Exam: CTA Neck With Contrast Exam date and time: 07/29/2023 11:45 AM Age: 78 years old Clinical indication: Other: Rule out cerebellar infarct TECHNIQUE: Imaging protocol: Computed tomographic angiography of the neck with contrast. Exam focused on the cervical segments of the vasculature. COMPARISON: CT CERVICAL SPINE WO 04/06/2022 8:21 AM FINDINGS: Right common carotid artery: No stenosis. No dissection or occlusion. Right internal carotid artery: No stenosis of the extracranial segment. No dissection or occlusion. Right external carotid artery: No occlusion or stenosis of the origin. Left common carotid artery: No stenosis. No dissection or occlusion. Left internal carotid artery: No stenosis of the extracranial segment. No dissection or occlusion. Left external carotid artery: No occlusion or stenosis of the origin. Right vertebral artery: No stenosis. No dissection or occlusion. Left vertebral artery: No stenosis. No dissection or occlusion. Aorta: There is atherosclerotic change in aortic arch. No aneurysm or dissection. There is atherosclerotic change in proximal left subclavian artery. No bilateral subclavian artery stenosis or occlusion. Soft tissues: Normal. No significant soft tissue swelling. Bones/joints: There are degenerative changes in cervical spine. IMPRESSION: No cervical vascular stenosis, occlusion, or evidence of dissection. REFERENCES: NASCET CRITERIA. The degree of stenosis in the cervical segment of the internal carotid artery is based on NASCET criteria. Normal is no stenosis. Mild is less than 50% stenosis. Moderate is 50-69% stenosis. Severe is 70% to 99% stenosis. Total occlusion is no detectable patent lumen. Dictated and Authenticated by: Agatha Varela MD. Ordering:TORY Rogers MD
[2023-07-29 12:41] LABS: Bilirubin Negative (Negative); Blood Trace-intact (Negative); Clarity Clear (Clear); Glucose Negative (Negative); Ketones Negative (Negative); Leukocyte Esterase Negative (Negative); Nitrite Negative (Negative); Specific Gravity 1.015 (1.005-1.025); Urobilinogen 0.2 mg/dL (Up to 0.2)
[2023-07-29 12:58] LABS: Bacteria Negative HPF (Negative); C & S Indicated? No; Casts Negative LPF (Negative); Crystals Negative HPF (Negative); Epithelial Cells Rare HPF (Negative); Mucus Negative (Negative); RBC 0-2 HPF (0-2); WBC Negative HPF (0-5)
[2023-07-29] MEDS: Normal Saline 1,000 ML 150 ML IV (13:00)
[2023-07-29] MEDS: Potassium Chloride Liquid 20 MEQ PKT PO (13:28)
[2023-07-29] MEDS: Meclizine 25 MG TAB PO (13:28)
[2023-07-29 13:38] LABS: Troponin I < 50 ng/L (<or=60)
--- NOTE | 2023-07-29 14:20 | NUR.NOTE ---
Referral faxed to [facility] Neurology for vertigo, within 1 to 2 weeks. Nursing Note:
[2023-07-29 22:31] LABS: Campylobacter PCR Negative (Negative); Salmonella PCR Negative (Negative); Shiga Toxin PCR Negative (Negative); Shigella/Enteroinvasive Ecoli Negative (Negative)
--- NOTE | 2023-07-31 09:07 | NUR.NOTE ---
Accessed Pt chart to stop a duplicate order for CT. Radiology (Susan) called and stated they have one that was completed and read yesterday.
== END 2023-07-29 14:53 | disposition home or self-care (01) ==
PROVIDERS: Emergency Provider Emergency Medicine Emergency Medical Services; PCP Family Medicine
DX: R42 Dizziness and giddiness (principal); R11.2 Nausea with vomiting, unspecified; R19.7 Diarrhea, unspecified
CPT/HCPCS: 70496; 70498; 80053; 87505; 93005; 96361; 96374; 99285; 81003; 81015; 83735; 84443; 84484; 85025; 85610; 85730; 93010; 99284; J2405; J3490

== ENCOUNTER 2023-09-24 13:26 | Outpatient (REF) | payer MEDICARE, BC, SELFPAY ==
[2023-09-24 21:39] LABS: Anion Gap 8.3 mmol/L (3-11); BUN 17 mg/dL (7-18); CO2 28.7 mmol/L (21.0-32.0); CREATININE 0.9 mg/dL (0.55-1.02); Chloride 106 mmol/L (98-107); Estimated GFR 65.84 (mL/min/1.73m2); Glucose 95 mg/dL (74-106); Potassium 3.2 mmol/L (3.5-5.1); Sodium 143 mmol/L (136-145)
[2023-09-25 22:52] LABS: Campylobacter PCR Negative (Negative); Salmonella PCR Negative (Negative); Shiga Toxin PCR Negative (Negative); Shigella/Enteroinvasive Ecoli Negative (Negative)
== END 2023-09-24 13:27 | disposition home or self-care (01) ==
LOC: LBN 13:26
PROVIDERS: PCP Family Medicine; Visit Provider Nurse Practitioner Family
DX: R19.7 Diarrhea, unspecified (principal)
CPT/HCPCS: 80048; 87505; 87177

== ENCOUNTER 2024-01-04 08:49 | Outpatient (CLI) | payer MEDICARE, BC, SELFPAY ==
[2024-01-04 10:52] LABS: BUN 18 mg/dL (7-18); CREATININE 0.9 mg/dL (0.55-1.02); Calcium 9.7 mg/dL (8.5-10.1); Calculated LDL 92 mg/dL (<100); Chloride 103 mmol/L (98-107); Cholesterol 196 mg/dL (<200); Estimated GFR 65.84 (mL/min/1.73m2); Glucose 90 mg/dL (74-106); HDL Cholesterol 88 mg/dL (40-60); Potassium 3.8 mmol/L (3.5-5.1); Sodium 141 mmol/L (136-145); Triglyceride 81 mg/dL (<150)
== END 2024-01-04 08:50 | disposition home or self-care (01) ==
LOC: LOS 08:49
PROVIDERS: PCP Family Medicine; Referring Provider Family Medicine; Visit Provider Family Medicine
DX: E87.6 Hypokalemia (principal); Z13.6 Encounter for screening for cardiovascular disorders; E78.00 Pure hypercholesterolemia, unspecified
CPT/HCPCS: 36415; 80048; 80061

== ENCOUNTER → 2024-08-21 10:59 | Outpatient (BNVA) | payer MEDICARE, BC, SELFPAY | PROVIDERS: PCP Family Medicine; Referring Provider Family Medicine; Visit Provider Podiatrist | DX: L60.3 Nail dystrophy (principal); B35.1 Tinea unguium; M79.671 Pain in right foot; M79.672 Pain in left foot; L60.0 Ingrowing nail | CPT/HCPCS: 11750; 99214 ==

== ENCOUNTER → 2024-08-28 15:17 | Outpatient (BNVA) | payer MEDICARE, BC, SELFPAY | PROVIDERS: PCP Family Medicine; Referring Provider Family Medicine; Visit Provider Podiatrist | DX: L60.0 Ingrowing nail (principal); M79.671 Pain in right foot; M79.672 Pain in left foot; B35.1 Tinea unguium; L60.3 Nail dystrophy | CPT/HCPCS: 99024 ==

== ENCOUNTER → 2024-09-11 09:23 | Outpatient (BNVA) | payer MEDICARE, BC, SELFPAY | PROVIDERS: PCP Family Medicine; Referring Provider Family Medicine; Visit Provider Podiatrist | DX: L60.0 Ingrowing nail (principal); M79.671 Pain in right foot; M79.672 Pain in left foot; B35.1 Tinea unguium; L60.3 Nail dystrophy | CPT/HCPCS: 99213 ==

== ENCOUNTER → 2025-01-08 09:45 | Outpatient (BNVA) | payer MEDICARE, BC, SELFPAY | PROVIDERS: PCP Family Medicine; Referring Provider Family Medicine; Visit Provider Podiatrist | DX: L60.0 Ingrowing nail (principal); M79.671 Pain in right foot; M79.672 Pain in left foot; B35.1 Tinea unguium; L60.3 Nail dystrophy | CPT/HCPCS: 99213 ==

== ENCOUNTER 2025-01-15 01:02 | Outpatient (CLI) | payer MEDICARE, BC, SELFPAY ==
--- NOTE | 2025-01-15 09:10 | DI.DEXA_ITS ---
Exam(s) XR DEXA BONE DENSITY W/WO SHEILA EXAM: XR DEXA BONE DENSITY W/WO SHEILA CLINICAL HISTORY: Menopausal and perimenopausal disorder, N95.9, osteopenia hx in 2014 TECHNIQUE: COMPARISON: DX DEXA BONE DENSITY WITH SHEILA from 03/26/2014 FINDINGS: Lateral Spine Image: Unremarkable. No compression deformities identified. Left hip: Total T-Score: -1.1. This compares to -0.6 on the prior examination. Total Z-Score: 0.8 T- and Z-scores: Findings are consistent with osteopenia. Lumbar Spine: Total T-Score: -0.9. This compares to -1.1 on the prior examination. Total Z-Score: 1.7 T- and Z-scores: Within normal limits. There is osteoporosis in the right forearm with a total T-score of -2.9 and a Z- score of 0.0. IMPRESSION: There is osteoporosis seen in the right forearm.
== END 2025-01-15 01:22 ==
LOC: DI 01:02
PROVIDERS: PCP Family Medicine; Visit Provider Family Medicine
DX: M81.0 Age-related osteoporosis without current pathological fracture (principal); N95.9 Unspecified menopausal and perimenopausal disorder
CPT/HCPCS: 77080

== ENCOUNTER 2025-04-19 14:47 | Emergency (ER) | payer MEDICARE, BC, SELFPAY ==
[2025-04-19 14:50] VITALS: BP 147/62; PULSE 87; RESP 14; TEMP 36.6; O2SAT 96
[2025-04-19 14:55] VITALS: BP 147/65; PULSE 87; RESP 14; TEMP 36.4; O2SAT 97
--- NOTE | 2025-04-19 15:12 | W.ED.GENAD ---
Discharge Plan Disposition Patient Disposition: Home Condition: Stable Discharge Details Clinical Impression: Acute facial pain Primary Care Provider: Krysta Morris ED Provider: Alfredo Castillo Home Meds and New Rx's Prescriptions: New doxycycline hyclate 100 mg tablet 100 mg PO BID Qty: 18 0RF No Action gabapentin 100 mg capsule See Rx Instructions PO BID Qty: 270 3RF Rx Instructions: 100mg in morning and 200mg at bedtime orally twice a day; lovastatin 20 mg tablet 20 mg PO DAILY Qty: 90 4RF metronidazole 0.75 % gel 1 applic topical DAILY PRN Patient Comments: APPLY TO AFFECTED SKIN ONE TO TWO TIMES DAILY ketoconazole 2 % cream 1 applic topical DAILY Qty: 15 5RF Rx Instructions: Apply once daily, separately from the Urea. calcium citrate-vitamin D3 200 mg calcium -250 unit tablet 1 tab PO BID clobetasol 0.05 % cream 1 applic topical BID Qty: 60 1RF acetaminophen [Tylenol Extra Strength] 500 mg tablet 500 mg PO Q6H PRNQty: 90 0RF Discharge Instructions Additional Instructions: I suspect you have a developing sinusitis. Take the antibiotic as prescribed. If you feel more ill or have new symptoms such as high fevers return to the emergency department for reevaluation. If not proving this week follow-up with your primary care provider. HPI General Mode of arrival: ambulatory. Date/Time Provider Initiated Documentation: 04/19/25 14:50. Limitations to Documentation: no limitations. Information obtained by: patient. History of Present Illness 80 year old F presents to the emergency department with the chief complaint of right sided facial discomfort, described as moderate, Quality is described as aching, Patient started experiencing this day(s) (1) and it has been constant. No relieving factors improve symptom(s), No exacerbating factors reported . Patient notes no other symptoms.. Patient did receive the following treatments prior to arrival, none Related Data Home Medications ?Medication ?Instructions ?Recorded ?Confirmed calcium 200 mg (as 1 tab PO BID 07/22/18 04/19/25 citrate)-vitamin D3 6.25 mcg (250 unit) tablet acetaminophen 500 mg tablet 500 mg PO Q6H PRN #90 tabs 11/16/20 04/19/25 (Tylenol Extra Strength) ketoconazole 2 % topical cream 1 applic topical DAILY fungal 08/21/24 04/19/25 nails #15 grams gabapentin 100 mg capsule See Rx Instructions PO BID #270 01/09/25 04/19/25 caps lovastatin 20 mg tablet 20 mg PO DAILY #90 tab-caps 01/09/25 04/19/25 metronidazole 0.75 % topical gel 1 applic topical DAILY PRN 01/09/25 04/19/25 clobetasol 0.05 % topical cream 1 applic topical BID #60 grams 03/10/25 04/19/25 doxycycline hyclate 100 mg tablet 100 mg PO BID #18 tabs 04/19/25 Previous Rx's ?Medication ?Instructions ?Recorded acetaminophen 500 mg tablet 500 mg PO Q6H PRN #90 tabs 11/16/20 (Tylenol Extra Strength) ketoconazole 2 % topical cream 1 applic topical DAILY fungal 08/21/24 nails #15 grams gabapentin 100 mg capsule See Rx Instructions PO BID #270 01/09/25 caps lovastatin 20 mg tablet 20 mg PO DAILY #90 tab-caps 01/09/25 clobetasol 0.05 % topical cream 1 applic topical BID #60 grams 03/10/25 doxycycline hyclate 100 mg tablet 100 mg PO BID #18 tabs 04/19/25 Allergies Allergy/AdvReac Type Severity Reaction Status Date / Time azithromycin Allergy Nausea Verified 04/19/25 14:56 BLACK FLIES Allergy Severe THROAT Uncoded 04/19/25 14:56 CLOSES UP amox-clav Allergy Diarrhea Uncoded 04/19/25 14:56 General Stated Complaint: FacialProb AFSANEH: 4 Review of Systems All systems reviewed & are unremarkable except as noted in HPI and below Constitutional Constitutional: Denies chills, Denies fever(s) and Denies weakness Eyes Eyes: Denies loss of vision Cardiovascular Cardiovascular: Denies chest pain and Denies dyspnea Respiratory Respiratory: Denies cough and Denies dyspnea Gastrointestinal Gastrointestinal: Denies abdominal pain and Denies vomiting Integumentary/Breasts Skin/Breast: Denies rash Neurologic Neurologic: Denies loss of vision and Denies weakness Exam Const General: no acute distress Orientation: alert [facility] Head: normal to inspection Ears: external ears normal General nose exam: external nose normal Mouth: moist mucous membranes Eyes General: appearance normal, both eyes and all related structures Neck Neck: normal visual inspection Resp Effort & Inspection: normal respiratory effort and able to speak in complete sentences Cardio Rate: regular rate Skin General skin exam: no rashes or lesions noted Neuro General: patient alert and patient oriented x3 Extrem General: normal to inspection Psych Mental Status: mental status grossly normal Course Vital Signs Vital signs: Vital Signs Temperature 36.6 C 04/19/25 14:50 Pulse 87 04/19/25 14:50 Respiratory Rate 14 04/19/25 14:50 Blood Pressure 147/62 H 04/19/25 14:50 Pulse Oximetry 96 04/19/25 14:50 Temperature 36.4 C L 04/19/25 14:55 Temperature Source Oral 04/19/25 14:55 Pulse 87 04/19/25 14:55 Respiratory Rate 14 04/19/25 14:55 Blood Pressure 147/65 H 04/19/25 14:55 Blood Pressure Position Sitting 04/19/25 14:55 Pulse Oximetry 97 04/19/25 14:55 Oxygen Delivery Method Room Air 04/19/25 14:55 Oxygen Flow Rate 0 04/19/25 14:50 Medical Decision Making 80-year-old female comes in with 1 day of right-sided facial discomfort that radiates into her neck. She denies any fevers, vision changes, weakness. She has no facial swelling on exam, pupils are equal and reactive to light. She has no restricted neck movements and no submandibular swelling. She says that she saw her dentist recently and was told she needs a cavity replaced in the right upper mid molar. Posterior pharynx is normal with midline uvula, she has numerous dental fillings without visible apical abscess. The pain in her face is primarily located with the right maxillary sinus, right tympanic membrane is normal as is the external auditory canal. Given the location of the pain I suspect she is developing sinusitis. She has no findings on exam or history to suggest entities such as facial cellulitis, erysipelas, periorbital cellulitis. No meningismus to suggest AEROSOL LINE OPERATOR infection as she has no trouble swallowing or neck swelling so I do not see such as neck abscess. I am to start her on doxycycline for possible sinusitis and she will follow-up with her PCP if not improving, return precautions given. Differential Diagnosis Differential Diagnosis: sinusitis, pulpitis PFSH All Active Problems (Updated 04/19/25 @ 15:18 by Alfredo Castillo MD) Acute facial pain (Acute) Nail dystrophy (Acute) Onychomycosis (Acute) Pain in both feet (Acute) Ingrown toenail (Acute) Anxiety disorder (Acute) Cervical radiculopathy due to degenerative joint disease of spine (Chronic) s/p trigger point injections with bupivicaine at [facility] 06/2022 POLST (Physician Orders for Life-Sustaining Treatment) (Acute) Pure hypercholesterolemia (Acute) excellent response to low Statin Primary osteoarthritis of left knee (Acute 10/29/17) Injected: 10/06/2019; 05/29/2019; 10/29/2017 Hemorrhoids (Acute) Lichen sclerosus et atrophicus (Chronic) improves with clobetasol ointment; uses twice weekly. Medical History Postmenopausal Bleeding Ultrasound performed with 4 mm endometrial stripe. Endometrial sampling performed 01/26/2022 for scant tissue. Dupuytren contracture asymptomatic Hiatal hernia Family history of breast cancer (06/25/13) mom post menopausal; sister post menopausal Uterine leiomyoma small fundal fibroid by U/S History of tobacco use (1993) QUIT IN 1993 Diverticulosis of colon without diverticulitis Surgical History S/P cataract extraction Tear of medial meniscus of left knee S/P L knee arthroscopy: 11/16/2020 History of bilateral ligation of fallopian tubes Status post rotator cuff repair Family History Mother , AGE 79 Essential hypertension Hyperlipidemia Breast cancer RETURNED AFTER 4.5 YRS Father , AGE 91 Diabetes Essential hypertension Heart disease CABG Hyperlipidemia Stroke Sister Heart disease Breast cancer managed with surgery Sister Diabetes Essential hypertension Paternal Grandfather , ACCIDENTAL No problems noted. Maternal Grandmother , SHOT at age 38. No problems noted. Paternal Grandmother , age 93 No problems noted. Son Essential hypertension Maternal Grandfather No problems noted. 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 What is your relationship status?: How often do you talk on the phone with friends or family?: three or more times per week How often do you get together with friends or relatives?: once per week How often do you attend evangelical or baptism services?: decline to answer Do you belong to any clubs or organized social groups?: yes Panel score (0-1 are the most socially isolated patients): 3 What type of physical activity do you participate in: walking Duration: < 15 minutes/day Frequency: decline to answer Brie/Judaism: Hoahaoism Special brie needs: No Seatbelt use: always Drive intox or ride w/intox service parts driver: No Do you feel safe at home: Yes Do you feel safe in your relationship?: Yes
[2025-04-19] MEDS: Doxycycline Hyclate 100 MG, 2 CAPS/BTL PO (15:36)
== END 2025-04-19 15:37 | disposition home or self-care (01) ==
PROVIDERS: Emergency Provider Emergency Medicine; PCP Family Medicine
DX: R51.9 Headache, unspecified (principal)
CPT/HCPCS: 99283 ×2

== ENCOUNTER → 2025-05-26 13:20 | Outpatient (BNVA) | payer MEDICARE, BC, SELFPAY | PROVIDERS: PCP Family Medicine; Visit Provider Podiatrist | DX: L60.3 Nail dystrophy (principal); B35.1 Tinea unguium; M79.671 Pain in right foot; M79.672 Pain in left foot; L60.0 Ingrowing nail | CPT/HCPCS: 99213 ==

== ENCOUNTER → 2025-07-29 00:07 | Outpatient (CLI) | payer MEDICARE, BC, SELFPAY ==
--- NOTE | 2025-07-29 11:30 | DI.US_ITS ---
Exam(s) US BREAST RT COMPLETE EXAM: US BREAST RT COMPLETE AND COMPLETE RIGHT BREAST ULTRASOUND CLINICAL HISTORY: Patient perceived right breast lump N63.14 LUMP RT BREAST N63.12 N63.10. TECHNIQUE: Complete ultrasound of the breast was performed including all 4 quadrants, the retroareolar region, and the ipsilateral axilla. COMPARISON: Prior mammograms were reviewed. FINDINGS: SEE COMBINED REPORT IMPRESSION: \ Breast density Category C or D implies that the patient has dense breast tissue. Dense breast tissue can make it harder to find cancer on a mammogram. Dense breast tissue is also associated with an increased risk of breast cancer. This information about the result of the mammogram report was provided to the patient to raise their awareness. Use this report when you speak with the patient about their risks for breast cancer, which includes their family history. At that time, you may recommend additional screening tests (Ultrasound or MRI) as these tests may add significant information. A negative radiographic report should not delay biopsy if a dominant or clinically suspicious mass is present. Up to ten percent of cancers are not identified on mammography. A negative report may reinforce clinical impression. Adenosis and dense breasts may obscure an underlying neoplasm. False positive reports average 6 to 10%. Patient will receive a letter notifying them of these results.
--- NOTE | 2025-07-29 13:46 | DI.MAMMO_ITS ---
Exam(s) MG MAMMO DIAGNOSTIC UNI EXAM: MG MAMMO DIAGNOSTIC UNI AND COMPLETE RIGHT BREAST ULTRASOUND CLINICAL HISTORY: Evaluate right breast N63.10 LUMP RIGHT BREAST. TECHNIQUE: UNILATERAL RIGHT BREAST MAMMOGRAM CC AND MLO AND EXAGGERATED CC mammographic images were obtained with 3D tomosynthesis technique and utilizing computer aided detection (CAD). COMPLETE RIGHT BREAST ULTRASOUND was performed including all 4 quadrants as well as the right axilla. COMPARISON: Prior outside mammograms were reviewed. This 80-year-old patient apparently feels a new lump in her right axilla. FINDINGS: DIAGNOSTIC RIGHT BREAST MAMMOGRAM: There has been no significant change in the appearance and distribution of the fibroglandular tissue of the right breast. There are no new spiculated masses nor malignant-appearing microcalcification groups. No new architectural distortion or skin thickening-traction. We proceeded with ultrasound... COMPLETE RIGHT BREAST ULTRASOUND: There is no evidence of solid or significant cystic lesions in all 4 quadrants of the right breast. The patient's palpable finding is in the right axilla. Scanning of the right axilla reveals a solitary benign-appearing lymph node which measures approximately 1.3 x 0.9 cm. No other right axillary findings. We scanned the opposite-left axilla for comparison and this reveals a similar/actually slightly larger benign-appearing lymph node. IMPRESSION: 1. No radiographic evidence of malignancy in the right breast. 2. Benign-appearing lymph node in the right axilla corresponding to this patient's palpable lump. Please note that a similar appearing lymph node is noted in the opposite-left axilla. Appropriate follow-up is to keep this patient on her yearly mammogram schedule with repeat ultrasound examination also to be performed at that time, earlier if she feels that this finding is further increasing in size.. The patient was informed of the findings and follow-up recommendations by myself prior to leaving the department today. BI-RADS Category 2 - Benign Findings Breast Density - Category C - The breast are heterogeneously dense, which may obscure small masses. Breast density Category C or D implies that the patient has dense breast tissue. Dense breast tissue can make it harder to find cancer on a mammogram. Dense breast tissue is also associated with an increased risk of breast cancer. This information about the result of the mammogram report was provided to the patient to raise their awareness. Use this report when you speak with the patient about their risks for breast cancer, which includes their family history. At that time, you may recommend additional screening tests (Ultrasound or MRI) as these tests may add significant information. A negative radiographic report should not delay biopsy if a dominant or clinically suspicious mass is present. Up to ten percent of cancers are not identified on mammography. A negative report may reinforce clinical impression. Adenosis and dense breasts may obscure an underlying neoplasm. False positive reports average 6 to 10%. Patient will receive a letter notifying them of these results.
== END ==
LOC: DI 00:07
PROVIDERS: PCP Family Medicine; Visit Provider Obstetrics & Gynecology
DX: N63.14 Unspecified lump in the right breast, lower inner quadrant (principal); N63.12 Unspecified lump in the right breast, upper inner quadrant
CPT/HCPCS: 76642; 77061; 77065; G0279